=== PATIENT | male | born 1985 | race Caucasian/White ===

== ENCOUNTER 2016-07-11 | Emergency (ER) | payer BC | END 2016-07-12 03:21 | disposition home or self-care (01) | DX: I80.01 Phlebitis and thrombophlebitis of superficial vessels of right lower extremity (principal); L03.115 Cellulitis of right lower limb; F17.210 Nicotine dependence, cigarettes, uncomplicated | CPT/HCPCS: 73610; 73630; 99283; J0696; J7050 ==